=== PATIENT | female | born 1995 | race African-American/Black ===

== ENCOUNTER 2016-12-23 06:24 | Inpatient (IN) ==
[2016-12-23 07:29] LABS: Amphetamine Screen,Urine Negative ng/mL (Cutoff=1000); Barbiturate Screen,Urine Negative ng/mL (Cutoff=200); Benzodiazepines Screen,Urine Negative ng/mL (Cutoff=200); Cannabinoid Screen,Urine Positive ng/mL (Cutoff = 50); Cocaine Screen,Urine Negative ng/mL (Cutoff= 300); Opiate Screen,Urine Negative ng/mL (Cutoff=300); Phencyclidine Screen,Urine Negative ng/mL (Cutoff=25)
[2016-12-23] MEDS ORDERED: *HR* Nalbuphine 20 MG/ML AMPUL IM PRN (07:47)
[2016-12-23] MEDS ORDERED: Famotidine 20 MG/2 ML VIAL IVP PRN (10:16)
[2016-12-23] MEDS ORDERED: Ondansetron 4 MG/2 ML VIAL IVP PRN (10:16)
[2016-12-23] MEDS ORDERED: Naloxone 0.4 MG/ML INJ IVP PRN (10:16)
[2016-12-23] MEDS ORDERED: Ringers Solution, Lactated 1,000 ML IVC SCH (10:30)
--- NOTE | 2016-12-23 10:59 | OB/GYN History & Physical ---
Date of Encounter: 12/23/16 Time of Encounter: 09:20 Assessment and Plan (1) 38 weeks gestation of Current visit: No Status: Acute Patient currently at 4 cm dilation. Having regular contractions. - GBS prophylaxis. - Labor induced. (2) Nausea & vomiting Current visit: Yes Status: Acute Patient has been having nausea and vomiting associated with . She denies fever and chills. Abdomen non-tender. - On zofran. Qualifiers: Qualified Code(s): R11.2 - Nausea with vomiting, unspecified History of Present Illness Chief complaint: Labor/delivery evaluation HPI: Ms. Yates is a 21 year old female that is at 38 6/7 weeks gestational age that presents for labor and delivery evaluation. Patient says that she has been experiencing contractions since 1 am and they have been 5 minutes apart. She admits to movement. She denies any leakage of vaginal fluid or bleeding. She denies any headaches or vision changes. Denies chest pain. She admits to nause and vomiting throughout the course of her . She denies fever, chills, pain with urination, or diarrhea. Group B Strep: positive HepB surface antigen: Non-reactive. HIV Ab: non-reactive. Trep pallidum Ab: Negative Rubella Ab: positive. Varicella Ab: positive. N. Gonorrhoeae: negative Chlamydia: negative. Blood Type: A+ Past Med Surg Social Fam HX - Past Medical History Medical history: asthma Psychiatric history: no psych history - Past Surgical History Surgical History: other - Social History Smoking Status: Never smoker Smokeless Tobacco Status: No Alcohol use: none Drug use: marijuana - Family History Mother Living Status: Still Living Hx Family Cardiac Disorders: Yes (HTN) Hx Family Respiratory Disorders: No Hx Family Cancer: No Hx Family GI Disorders: No Hx Family Endocrine Disorder: No Hx Family Neuromuscular Disorders: No Hx Family Neurologic Disorders: No Hx Family HEENT Disorders: No Hx Family Autoimmune Disorders: No Obstetrical History - Pregnancies : 2 Para: 1 Term: 1 : 0 Ab's: 0 Livin Medications and Allergies Vit/Iron Fumarate/FA [ Tablet] 1 each PO DAILY 12/31/15 [ History] 3 Allergy/AdvReac Type Severity Reaction Status Date / Time Penicillins Allergy Blister Verified 12/23/16 06:29 Exam - Constitutional Constitutional: well developed, well nourished, no acute distress, obese - HEENT HEENT: EOMI, PERRL, Normocephaly, Mucus Membranes Moist - Lungs Respiratory exam: CTAB - Cardiovascular Cardiovascular exam: +S1, +S2, tachycardia - Abdomen Abdomen: Present: bowel sounds normal, gravid, non tender - Extremities Extremities exam: pedal edema, radial pulses palpable and symmetrical Deep Tendon Reflex Grade: 2+ Normal - Cervix Dilation: 4 Results Result Diagrams: 12/23/16 10:50 Abnormal lab results U Marijuana (THC) Screen Positive ng/mL (Cutoff = 50) H 12/23/16 06:45 All other labs normal. - VTE Reasons for not Prescribing Prophylaxis: Treatment not Indicated - Low risk for VTE
[2016-12-23 11:03] LABS: Basophils % 0.2 %; Eosinophils # 0.2 K/mcL (0.0-0.6); Hemoglobin 10.4 g/dL (11.5-15.4); Immature Granulocytes % 0.7 % (0-4); Lymphocytes # 1.8 K/mcL (0.6-4.6); Lymphocytes % 9.2 %; Mean Corpuscular HGB Conc 31.5 g/dL (31.6-35.5); Mean Corpuscular Hemoglobin 22.4 pg (28.0-33.3); Mean Platelet Volume 10.2 fL (9.4-12.4); Monocytes # 1.4 K/mcL (0.0-1.3); Monocytes % 7.2 %; Neutrophils # 15.7 K/mcL (1.6-8.9); Platelet Count 309 K/mcL (140-400); Red Blood Count 4.65 M/mcL (3.82-4.97); Red Cell Distribution Width 15.7 % (11.5-14.5); Segmented Neutrophils % 81.7 %
[2016-12-23] MEDS ORDERED: Oxytocin 20 units/ LR 1000 mL 20 UNIT/1,000 ML BAG IVC ONE ×2 (11:27→14:30)
[2016-12-23] MEDS ORDERED: Vancomycin 1,000 MG in D5% in Water 250 ML IVPB SCH (11:30)
[2016-12-23] MEDS ORDERED: Lidocaine 1% 20 ML MDV ONE (11:31)
[2016-12-23] MEDS ORDERED: *HR* Ropivacaine/PF 0.2% 10 ML AMPUL EP ONE (11:36)
[2016-12-23] MEDS ORDERED: *HR* FentaNYL (PF) 100 MCG/2 ML VIAL EP ONE (11:36)
[2016-12-23] MEDS ORDERED: *HR* FentaNYL (PF) 100 MCG/2 ML VIAL ONE (11:38)
[2016-12-23] MEDS ORDERED: Epidural Premix (fent/bupiv) 110 ML EP ONE (11:38)
[2016-12-23] MEDS ORDERED: *HR* Ropivacaine/PF 0.2% 10 ML AMPUL ONE (11:38)
[2016-12-23] MEDS ORDERED: Epidural Premix (fent/bupiv) 110 ML EP SCH (11:45)
--- NOTE | 2016-12-23 12:06 | OB/GYN Procedure Note ---
Delivery - Delivery Date: 12/23/16 Provider: Lydia Stanley Intrapartum events: none Delivery induction: none Delivery monitor: external FHT, external uterine Anesthesia: epidural Estimated Blood Loss: 100 - Infant (s) A Infant Delivery Date: 12/23/16 Delivery Time: 11:44 Presentation: vertex Position: AVTAR Route of delivery: Gender: Female Viability: Viable Pounds: 6 Ounces: 5 Weight Gram: 2.79 kg at 1 minute: 8 at 5 mins: 9 Shoulder Dystocia: not encountered Specimens collected: cord blood Placenta: spontaneous Cord: nuchal cord, 3 umbilical vessels, nuchal reduced - Repair Episiotomy: none Laceration Description: Perineal - 1st Degree - Complications Delivery complications: none Delivery comments: Called to room with patient complete and +2 station. Under maternal effort she delivered a viable female weighing 6 lbs. 2 oz. and Apgars 8 and 9 at one and 5 minutes respectively over a first degree perineal laceration. Following the delivery of the head there was a loose nuchal cord that was reduced. The remainder of the infant delivered with maternal effort. There was no shoulder dystocia encountered. This was placed on mom's abdomen where cord was allowed to cease pulsations prior to double clamp and cut. Cord blood was collected. Placenta delivered spontaneously, complete, and intact with a three- vessel cord. First degree perineal laceration was hemostatic without repair. Mother and are recovering in the LDR in stable condition. - Disposition Mom disposition: stable in LDR [place] disposition: stable in LDR
--- NOTE | 2016-12-23 12:19 | Anesthesia Evaluation PreOp ---
Date of Encounter: 12/23/16 Time of Encounter: 12:17 - Past History Planned Operation: grant Cardiac History: Denies any Significant Hx Pulmonary History: Asthma HOSPITAL PHARMACY DIRECTOR History: Denies Any Significant HX Other Medical History: GERD Anesthesia History: No Prior Anesthetic Complications, Past Anesthesia (grant) : Yes Test: Positive Alcohol Use: none Drug use: marijuana Medications and Allergies Vit/Iron Fumarate/FA [ Tablet] 1 each PO DAILY 12/31/15 [ History] 3 Allergy/AdvReac Type Severity Reaction Status Date / Time Penicillins Allergy Blister Verified 12/23/16 06:29 - Meds/Allergy Pre-op Review Medications Reviewed: Yes Allergies Reviewed: Yes Beta Blockers on Current Med List: No Anesthesia Results - Labs 12/23/16 10:50 Anesthesia Exam Height: 5'6" Weight: 223 NPO (# of Hours): 4 Pain Scale: 8 Pain Scale Used: Numeric (1 - 10) - HEENT Pupil (Motor): Pupils equal Mallampati: II Teeth: Normal Oral Opening: Greater than 3 - HOSPITAL PHARMACY DIRECTOR LOC: Oriented HOSPITAL PHARMACY DIRECTOR Motor: Normal RUE, Normal LUE, Normal RLE, Normal LLE, Normal Face HOSPITAL PHARMACY DIRECTOR Sensory: Normal: RUE, LUE, RLE, LLE, Face - Cardiac Rhythm: Regular Murmur: None - Pulmonary Breath Sounds: bilateral Clear Respiratory Effort: Symmetrical Anesthesia Assess/Plan ASA Score: 2 Modified Marcus Scale for Level of Consciousness: Cooperative, oriented, and tranquil Anesthetic Plan: Regional Autologous Blood: No Monitoring Plan: Standard Monitors Recovery Plan: Other (risks discussed, questions answered, consented)
--- NOTE | 2016-12-23 12:22 | Anesthesia Procedures ---
Date of Encounter: 12/23/16 Time of Encounter: 12:20 Procedures: Anesthesia - Epidural/Spinal Patient examined: Yes OB Eval: Gestational age: 3 OB Eval: : 2 OB Eval: Hx Para: 1 OB Eval: Dilated at (cm): 8 Consent Obtained: Yes Supplemental Oxygen: None/Room Air Site Prep: Aseptic Technique, Sterile prep and drape, Povidone-Iodine 1% Patient position: upright Local Anesthetic: Lidocaine 1% Amount of Local Anesthetic used: 3 Touhy Needle Gauge: 18 Touhy Needle Depth (cm): 8 Catheter Depth at Skin (cm): 18 Test Dose (1.5% Lido + Epi): Volume given (mls): 3 Test Dose Result: Negative Loading Dose: Fentanyl (mcg): 100 Loading Dose: Other: rop 0.2 10cc Loading Dose Administered: Thru Touhy Needle Infusion Med: 0.125% Bupivacaine w/ 2 mcg/ml Fentanyl Infusion Rate (mls/hr): [address]: Tegaderm Interspace Used: L2-L3 Loss of Resistance (PETER): Yes Blood: No CSF: No Paresthesia: No Procedure: tolerated well, VSS
[2016-12-23] MEDS ORDERED: Acetaminophen 325 MG TABLET PO PRN (14:30)
[2016-12-23] MEDS ORDERED: Oxytocin 20 units/ LR 1000 mL 20 UNIT/1,000 ML BAG IVC SCH (14:30)
[2016-12-23] MEDS: Famotidine 20 MG TABLET PO SCH (20:46)
[2016-12-23] MEDS: Ibuprofen 600 MG TABLET PO PRN (20:46)
[2016-12-24] MEDS ORDERED: Prenatal Vit/FA 1 EACH TABLET PO SCH (09:00)
[2016-12-24] MEDS: Famotidine 20 MG TABLET PO SCH (09:28)
[2016-12-24] MEDS: Ibuprofen 600 MG TABLET PO PRN (09:28)
--- NOTE | 2016-12-24 09:28 | Discharge Summary ---
Date of Encounter: 12/24/16 Time of Encounter: 09:25 - Discharge Diagnosis (1) (normal spontaneous vaginal delivery) Priority: Primary Status: Acute Comments: Now who presented for labor eval at 38 6/7 weeks without complication (2) 38 weeks gestation of Priority: Secondary Status: Resolved Comments: s/p (3) Group B streptococcal carriage complicating Priority: Secondary Status: Acute Comments: Patient received vancomycin as she has a pcn allergy - Discharge Medications Prescriptions: Ibuprofen [Motrin] 600 mg PO Q6HR PRN #60 tablet PRN Reason: Cramping Docusate [Colace] 100 mg PO BID #30 capsule Ferrous Sulfate 325 mg PO DAILY #30 tablet Home Medications: Vit/Iron Fumarate/FA [ Tablet] 1 each PO DAILY 12/31/15 [ History] Docusate [Colace] 100 mg PO BID #30 capsule 12/24/16 [Rx] Ferrous Sulfate 325 mg PO DAILY #30 tablet 12/24/16 [Rx] Ibuprofen [Motrin] 600 mg PO Q6HR PRN #60 tablet 12/24/16 [Rx] Allergies/Adverse Reactions: 3 Allergy/AdvReac Type Severity Reaction Status Date / Time Penicillins Allergy Blister Verified 12/23/16 06:29 Data Procedures and tests throughout hospitalization: Laboratory Tests 12/23/16 12/23/16 06:45 10:50 WBC 19.2 H RBC 4.65 Hgb 10.4 L Hct 33.0 L MCV 71.0 L MCH 22.4 L MCHC 31.5 L RDW 15.7 H Plt Count 309 MPV 10.2 Immature Gran % 0.7 Seg Neutrophils % 81.7 Lymphocytes % 9.2 Monocytes % 7.2 Eosinophils % 1.0 Basophils % 0.2 Neutrophils # 15.7 H Lymphocytes # 1.8 Monocytes # 1.4 H Eosinophils # 0.2 Basophils # 0.0 Urine Opiates Screen Negative Ur Barbiturates Screen Negative Ur Phencyclidine Scrn Negative Ur Amphetamines Screen Negative U Benzodiazepines Scrn Negative Urine Cocaine Screen Negative U Marijuana (THC) Screen Positive H Labs on day of discharge: Labs from last 24 hours 12/23/16 10:50 WBC 19.2 H RBC 4.65 Hgb 10.4 L Hct 33.0 L MCV 71.0 L MCH 22.4 L MCHC 31.5 L RDW 15.7 H Plt Count 309 MPV 10.2 Immature Gran % 0.7 Seg Neutrophils % 81.7 Lymphocytes % 9.2 Monocytes % 7.2 Eosinophils % 1.0 Basophils % 0.2 Neutrophils # 15.7 H Lymphocytes # 1.8 Monocytes # 1.4 H Eosinophils # 0.2 Basophils # 0.0 Date of admission: 12/23/16 06:24 Primary care physician: PCP NONE Consults: 12/23/16 14:30 Consult to Personnel Interviewer [CONS] Routine Comment: Vaginal delivery, consult needed Consult to Roof Painter [CONS] Routine Reason for SW Consult: noncompliance and short interval Discharging clinician: Susanne Baum Anticipated date of discharge: 12/24/16 - Patient Status Disposition: Home, Self-Care Condition: Good Functional capacity at discharge: independent ambulation Overall status at discharge: patient is progressing back to baseline - Discharge Instructions Follow Up With: NONE,PCP [Primary Care Provider] - Lydia Stanley DO [Partnered Physician] - 01/20/17 2:00 pm - Diet and Activity Activity: increase activity as tolerated Diet: advance to your usual diet Hospital Course Reason for admission: observation Delivery: Episiotomy: none Laceration: 1st degree (perineal) Other procedures: none complications: none Discharge diagnosis: IUP at term delivered baby: female Hospital course: 21 y/o at 38 6/7 weeks presented for labor eval secondary to frequent contractions. Patient was 4cm dilated on arrival. She received an epidural and labor progressed without augmentation or complication. She did receive a vancomycin as she was GBS + and has an allergy to PCN. She delivered a viable female weighing 6 lbs. 2 oz. and Apgars 8 and 9 at one and 5 minutes respectively over a first degree perineal laceration. Following the delivery of the head there was a loose nuchal cord that was reduced. The remainder of the delivered with maternal effort. There was no shoulder dystocia encountered. Cord blood was collected. Placenta delivered spontaneously, complete, and intact with a three-vessel cord. First degree perineal laceration was hemostatic without repair. Patient has been stable since delivery, denies pain or discomfort. She states she is having some bleeding, but it is like a normal period. She did have a Hgb of 10.4 and was discharged with a prescription for iron. She was also discharged with a prescription for ibuprofen 600mg Q6hr and colace BID. She will be discharged in stable condition with follow up scheduled. Time Attestation: Total time spent providing and/or coordinating discharge services: Time Spent: Less than 30 minutes Exam - Constitutional Vitals: Temp Pulse Resp BP Pulse Ox 97.9 F 93 14 99/70 99 12/23/16 19:49 12/23/16 19:49 12/23/16 19:49 12/23/16 19:49 12/23/16 19:49 General appearance IM: A&O X 3, pleasant, no acute distress, answers questions appropriately - Respiratory Respiratory exam: Present: CTAB. Absent: respiratory distress - Cardiovascular Cardiovascular exam IM: Present: RRR, +S1, +S2. Absent: diastolic murmur, irregular rhythm, systolic murmur - GI/Abdominal GI/Abdominal exam IM: normal bowel sounds Incision: normal, dry, intact - Rectal Rectal exam: deferred - Uterine Tone: Firm Uterus Position: 1 Finger Below Umbilicus - Extremities Exam Extremities exam IM: Present: normal capillary refill, normal inspection, radial pulses palpable and symmetrical. Absent: calf tenderness, pedal edema, tenderness - Neurological Exam Neurological exam: alert, normal gait, oriented X3, no focal deficits, strengths equal and symetr throughout
[2016-12-24 10:48] VITALS: BP 127/82
== END 2016-12-24 10:10 | disposition home or self-care (01) | DRG 560 ==
LOC: 1NENULAB → OBSVTOIN 06:24 → 1NENUOBS 14:14
PROVIDERS: ADMIT Advanced Practice Midwife; ATTEND Advanced Practice Midwife

== ENCOUNTER → 2019-06-14 16:10 | Observation (INO) ==
[~2019-06-14 16:10] MED LIST: FLU Vac QV 19-20 (6Month+)/PF 0.5 ML SYRINGE IM ONE
== END | disposition home or self-care (01) ==
LOC: 1NENULAB
PROVIDERS: ADMIT Obstetrics & Gynecology; ATTEND Obstetrics & Gynecology

== ENCOUNTER 2019-06-15 09:37 | Inpatient (IN) ==
[~2019-06-15 09:37] MED LIST changes: +*HR* FentaNYL (PF) 100 MCG/2 ML VIAL IVP PRN; +Azithromycin 500 MG in 0.9 % Sodium Chloride 250 ML IVPB ONE; -FLU Vac QV 19-20 (6Month+)/PF 0.5 ML SYRINGE IM ONE; +Famotidine 20 MG/2 ML VIAL IVP PRN; +Lidocaine 1% 20 ML MDV ID PRN; +Metoclopramide 10 MG/2 ML VIAL IVP PRN; +Naloxone 0.4 MG/ML INJ IVP PRN; +Ondansetron 4 MG/2 ML VIAL IVP PRN; +Oxytocin 20 units/ LR 1000 mL 20 UNIT/1,000 ML BAG IVC SCH; +Ringers Solution, Lactated 1,000 ML IVC SCH
[2019-06-15 09:57] LABS: Basophils # 0.1 K/mcL (0.0-0.2); Basophils % 0.3 %; Eosinophils # 0.2 K/mcL (0.0-0.6); Eosinophils % 1.1 %; Hematocrit 31.7 % (35.3-44.9); Hemoglobin 9.9 g/dL (11.5-15.4); Immature Granulocytes % 0.5 % (0-4); Lymphocytes # 2.3 K/mcL (0.6-4.6); Lymphocytes % 15.4 %; Mean Corpuscular HGB Conc 31.2 g/dL (31.6-35.5); Mean Corpuscular Hemoglobin 22.7 pg (28.0-33.3); Mean Corpuscular Volume 72.7 fL (83.0-100.0); Mean Platelet Volume 10.3 fL (9.4-12.4); Monocytes # 1.1 K/mcL (0.0-1.3); Monocytes % 7.6 %; Neutrophils # 11.2 K/mcL (1.6-8.9); Platelet Count 360 K/mcL (140-400); Red Blood Count 4.36 M/mcL (3.82-4.97); Red Cell Distribution Width 14.9 % (11.5-14.5); Segmented Neutrophils % 75.1 %; White Blood Count 14.9 K/mcL (4.3-11.1)
[2019-06-15 10:07] LABS: Amphetamine Screen,Urine Negative ng/mL (Cutoff=1000); Barbiturate Screen,Urine Negative ng/mL (Cutoff=200); Benzodiazepines Screen,Urine Negative ng/mL (Cutoff=200); Cannabinoid Screen,Urine Positive ng/mL (Cutoff = 50); Cocaine Screen,Urine Negative ng/mL (Cutoff= 300); Opiate Screen,Urine Negative ng/mL (Cutoff=300); Phencyclidine Screen,Urine Negative ng/mL (Cutoff=25)
[2019-06-15] MEDS ORDERED: Ibuprofen 600 MG TABLET PO ONE (15:05)
[2019-06-15] MEDS ORDERED: Oxytocin 20 units/ LR 1000 mL 20 UNIT/1,000 ML BAG IVC SCH (15:48)
[2019-06-15] MEDS ORDERED: Acetaminophen 325 MG TABLET PO PRN (15:48)
[2019-06-15] MEDS ORDERED: Lanolin 7 G OINT...G. TP PRN (15:48)
[2019-06-15] MEDS ORDERED: Measles/Mumps/Rubella Vacc 0.5 ML VIAL SQ PRN (15:48)
[2019-06-15] MEDS ORDERED: Benzocaine/Menthol 56 GM AEROSOL SPRAY TP PRN (15:48)
[2019-06-15] MEDS ORDERED: Ibuprofen 600 MG TABLET PO PRN (15:48)
[2019-06-16 04:46] LABS: Basophils % 0.2 %; Eosinophils # 0.2 K/mcL (0.0-0.6); Hematocrit 29.7 % (35.3-44.9); Hemoglobin 9.3 g/dL (11.5-15.4); Immature Granulocytes % 0.5 % (0-4); Lymphocytes % 18.5 %; Mean Corpuscular HGB Conc 31.3 g/dL (31.6-35.5); Mean Corpuscular Volume 73.5 fL (83.0-100.0); Mean Platelet Volume 10.4 fL (9.4-12.4); Monocytes # 1.4 K/mcL (0.0-1.3); Monocytes % 8.5 %; Neutrophils # 11.6 K/mcL (1.6-8.9); Platelet Count 300 K/mcL (140-400); Red Blood Count 4.04 M/mcL (3.82-4.97); Red Cell Distribution Width 14.8 % (11.5-14.5); Segmented Neutrophils % 71.3 %; White Blood Count 16.3 K/mcL (4.3-11.1)
[2019-06-16 07:58] VITALS: BP 122/79
[2019-06-16] MEDS ORDERED: Prenatal Vit/FA 1 EACH TABLET PO SCH (09:00)
== END 2019-06-16 14:29 | disposition home or self-care (01) | DRG 560 ==
LOC: 1NENULAB → 1NENUOBS 15:43
PROVIDERS: ADMIT Obstetrics & Gynecology; ATTEND Obstetrics & Gynecology

== ENCOUNTER 2020-02-02 02:45 | Observation (INO) | END 2020-02-02 03:20 | disposition home or self-care (01) | LOC: 1NENULAB | PROVIDERS: ADMIT Obstetrics & Gynecology; ATTEND Obstetrics & Gynecology ==

== ENCOUNTER 2020-05-10 03:36 | Inpatient (IN) ==
[2020-05-10] MEDS ORDERED: Lidocaine 1% 20 ML MDV INFILT PRN (03:40)
[2020-05-10] MEDS ORDERED: *HR* Nalbuphine 10 MG/ML AMPUL IV PRN (03:40)
[2020-05-10] MEDS ORDERED: Naloxone 0.4 MG/ML INJ IVP PRN (03:40)
[2020-05-10] MEDS ORDERED: Famotidine 20 MG/2 ML VIAL IVP PRN (03:40)
[2020-05-10] MEDS ORDERED: Ondansetron 4 MG/2 ML VIAL IVP PRN (03:40)
[2020-05-10] MEDS ORDERED: Metoclopramide 10 MG/2 ML VIAL IVP PRN (03:40)
[2020-05-10 04:31] LABS: Basophils % 0.2 %; Eosinophils # 0.1 K/mcL (0.0-0.6); Eosinophils % 1.1 %; Hematocrit 29.7 % (35.3-44.9); Hemoglobin 9.3 g/dL (11.5-15.4); Immature Granulocytes % 0.5 % (0-4); Lymphocytes # 2.4 K/mcL (0.6-4.6); Mean Corpuscular HGB Conc 31.3 g/dL (31.6-35.5); Mean Corpuscular Hemoglobin 22.6 pg (28.0-33.3); Mean Corpuscular Volume 72.1 fL (83.0-100.0); Mean Platelet Volume 10.3 fL (9.4-12.4); Monocytes # 1.4 K/mcL (0.0-1.3); Monocytes % 10.5 %; Neutrophils # 9.1 K/mcL (1.6-8.9); Platelet Count 291 K/mcL (140-400); Red Blood Count 4.12 M/mcL (3.82-4.97); Red Cell Distribution Width 14.9 % (11.5-14.5); Segmented Neutrophils % 69.7 %
[2020-05-10 04:44] LABS: Amphetamine Screen,Urine Negative ng/mL (Cutoff=1000); Barbiturate Screen,Urine Negative ng/mL (Cutoff=200); Benzodiazepines Screen,Urine Negative ng/mL (Cutoff=200); Cannabinoid Screen,Urine Positive ng/mL (Cutoff = 50); Cocaine Screen,Urine Negative ng/mL (Cutoff= 300); Opiate Screen,Urine Negative ng/mL (Cutoff=300); Phencyclidine Screen,Urine Negative ng/mL (Cutoff=25)
[2020-05-10] MEDS: Ringers Solution, Lactated 1,000 ML IVC SCH ×2 (04:49→10:32)
[2020-05-10] MEDS ORDERED: Famotidine 20 MG/2 ML VIAL IVP ONE (04:53)
[2020-05-10] MEDS: Oxytocin 20 units/ LR 1000 mL 20 UNIT/1,000 ML BAG IVC SCH ×2 (05:55→18:06)
[2020-05-10 06:35] LABS: Adenovirus Not Detected (Not Detect); Coronavirus 229E Not Detected (Not Detect); Coronavirus HKU1 Not Detected (Not Detect); Coronavirus NL63 Not Detected (Not Detect); Coronavirus OC43 Not Detected (Not Detect)
[2020-05-10 06:36] LABS: Bordetella Pertussis Not Detected (Not Detect); Chlamydophila pneumoniae Not Detected (Not Detect); Human Metapneumovirus Not Detected (Not Detect); Human Rhinovirus/Enterovirus Not Detected (Not Detect); Influenza A Subtype 2009 H1 Not Detected (Not Detect); Influenza B Not Detected (Not Detect); Mycoplasma pneumoniae Not Detected (Not Detect); Parainfluenza Virus 1 Not Detected (Not Detect); Parainfluenza Virus 2 Not Detected (Not Detect); Parainfluenza Virus 3 Not Detected (Not Detect); Parainfluenza Virus 4 Not Detected (Not Detect); Respiratory Syncytial Virus Not Detected (Not Detect); SARS-CoV-2 Not Detected (Not Detect)
[2020-05-10] MEDS ORDERED: Epidural Premix (fent/bupiv) 110 ML EP ONE (10:18)
[2020-05-10] MEDS ORDERED: EPHEDrine 50 MG/ML VIAL IVP PRN (10:50)
[2020-05-10] MEDS ORDERED: Epidural Premix (fent/bupiv) 110 ML EP SCH (11:00)
[2020-05-10] MEDS ORDERED: Lanolin 7 G OINT...G. TP PRN (18:32)
[2020-05-10] MEDS ORDERED: Oxytocin 20 units/ LR 1000 mL 20 UNIT/1,000 ML BAG IVC ONE (18:32)
[2020-05-10] MEDS ORDERED: Oxytocin 20 units/ LR 1000 mL 20 UNIT/1,000 ML BAG IVC SCH (18:32)
[2020-05-10] MEDS ORDERED: Acetaminophen 325 MG TABLET PO PRN (18:32)
[2020-05-10] MEDS: Ibuprofen 600 MG TABLET PO PRN (19:02)
[2020-05-11 07:13] LABS: Basophils # 0.1 K/mcL (0.0-0.2); Basophils % 0.3 %; Eosinophils # 0.1 K/mcL (0.0-0.6); Eosinophils % 0.6 %; Hematocrit 27.3 % (35.3-44.9); Hemoglobin 8.5 g/dL (11.5-15.4); Immature Granulocytes % 0.5 % (0-4); Lymphocytes # 2.4 K/mcL (0.6-4.6); Lymphocytes % 15.9 %; Mean Corpuscular HGB Conc 31.1 g/dL (31.6-35.5); Mean Corpuscular Hemoglobin 22.7 pg (28.0-33.3); Mean Platelet Volume 10.6 fL (9.4-12.4); Monocytes # 1.5 K/mcL (0.0-1.3); Monocytes % 9.8 %; Platelet Count 253 K/mcL (140-400); Red Blood Count 3.74 M/mcL (3.82-4.97); Red Cell Distribution Width 14.9 % (11.5-14.5); Segmented Neutrophils % 72.9 %; White Blood Count 15.1 K/mcL (4.3-11.1)
[2020-05-11 08:13] VITALS: BP 122/85
[2020-05-11] MEDS ORDERED: Etonogestrel 68 MG IMPLANT IL ONE (09:00)
[2020-05-11] MEDS ORDERED: Lidocaine/EPI 1:100k 1% 30 ML VIAL INFILT ONE (09:00)
[2020-05-11] MEDS ORDERED: Prenatal Vit/FA 1 EACH TABLET PO SCH (09:00)
[2020-05-11] MEDS: Ibuprofen 600 MG TABLET PO PRN (09:53)
== END 2020-05-11 18:15 | disposition home or self-care (01) | DRG 560 ==
LOC: 1NENULAB 03:36 → 1NENUOBS 20:01
PROVIDERS: ADMIT Obstetrics & Gynecology; ATTEND Obstetrics & Gynecology